=== PATIENT | male | born 1985 | race Caucasian/White ===

== ENCOUNTER 2016-09-24 20:21 | Inpatient (IN) | payer OTHER ==
[~2016-09-24] VITALS: Ht 188 cm; Wt 131.0 kg
[2016-09-24 21:43] LABS: HEMATOCRIT 43.1 % (38.0-50.0); MCH 27.8 PG (29.0-34.0); MCHC 34.1 G/DL (30.0-36.0); MCV 81.6 FL (86-99); MEAN PLAT.VOLUME 9.9 uM^3 (9.0-12.4); PLATELET COUNT 336 K/uL (156-360); RBC DIS.WIDTH-SD 38.1 % (39-53); RED BLOOD COUNT 5.28 M/uL (4.00-5.50); WHITE BLOOD COUNT 15.1 K/uL (4.1-10.2)
[2016-09-24 21:44] LABS: EOSINOPHIL (%) 0.6 % (0-5); EOSINOPHIL COUNT 0.1 K/uL (0-0.3); IMMATURE GRANULOCYTE (%) 0.3 % (0.0-0.7); IMMATURE GRANULOCYTE COUNT 0.4 K/uL; LYMPHOCYTE COUNT 1.9 K/uL (1.0-2.8); MONOCYTE (%) 6.8 % (3-12); NEUTROPHIL (%) 79.3 % (45-76)
[2016-09-24 21:56] LABS: CHLORIDE 105 mEq/L (99-109); POTASSIUM 4.2 mEq/L (3.7-5.4); SODIUM 141 mEq/L (136-147)
[2016-09-24 21:58] LABS: GLUCOSE 136 mg/dL (70-99)
[2016-09-24 21:59] LABS: ANION GAP 14 MEQ/L (2-14)
[2016-09-24 22:01] LABS: D-DIMER ELISA 0.49 mg/L FEU (< 0.57); PROTHROMBIN TIME 10.4 (9.2-11.2); PTT 25.5 (25-32)
[2016-09-24 22:02] LABS: GFR ESTIMATE (CALCULATED) > 59 mL/min/; UREA NITROGEN (BUN) 15 mg/dL (9-23)
[2016-09-24 22:09] LABS: TROP-I INTERPRETATION NEGATIVE; TROPONIN-I < 0.01 ng/mL (0.0-0.30)
[2016-09-25] MEDS ORDERED: BENZONATATE200 MG PO (00:35)
[2016-09-25] MEDS ORDERED: METHYLPHENIDATE20 M6 PO (00:36)
[2016-09-25] MEDS ORDERED: METHYLPHENIDATE20 MG PO (00:36)
[2016-09-25] MEDS ORDERED: ONE-A-DAY ESSE1 EAC1 PO (00:36)
[2016-09-25 06:28] VITALS: BP 123/75
[2016-09-25 10:35] LABS: INFLUENZA A VIRAL ANTIGEN NEGATIVE; INFLUENZA B VIRAL ANTIGEN NEGATIVE
[2016-09-25 11:16] VITALS: BP 126/63
[2016-09-25 14:00] VITALS: BP 141/71
[2016-09-25 19:07] VITALS: BP 136/62
[2016-09-25 23:45] VITALS: BP 142/63
[2016-09-26 03:15] VITALS: BP 128/75
[2016-09-26 07:07] LABS: EOSINOPHIL (%) 0.8 % (0-5); EOSINOPHIL COUNT 0.1 K/uL (0-0.3); HEMATOCRIT 38.6 % (38.0-50.0); IMMATURE GRANULOCYTE (%) 0.5 % (0.0-0.7); IMMATURE GRANULOCYTE COUNT 0.1 K/uL; LYMPHOCYTE COUNT 1.6 K/uL (1.0-2.8); MCH 28.2 PG (29.0-34.0); MCHC 32.9 G/DL (30.0-36.0); MCV 85.6 FL (86-99); MEAN PLAT.VOLUME 10.5 uM^3 (9.0-12.4); MONOCYTE (%) 13.6 % (3-12); MONOCYTE COUNT 1.5 K/uL (0-0.8); NEUTROPHIL (%) 70.6 % (45-76); NEUTROPHIL COUNT 7.8 K/uL (1.8-6.4); PLATELET COUNT 257 K/uL (156-360); RBC DIS.WIDTH-CV 13.3 % (11.8-14.6); RBC DIS.WIDTH-SD 41.4 % (39-53); RED BLOOD COUNT 4.51 M/uL (4.00-5.50); WHITE BLOOD COUNT 11.1 K/uL (4.1-10.2)
[2016-09-26 07:22] LABS: ALKALINE PHOSPHATASE 70 IU/L (3-129); ANION GAP 7 MEQ/L (2-14); CHLORIDE 104 MEQ/L (99-109); GFR ESTIMATE (CALCULATED) > 59 mL/min/; POTASSIUM 4.1 MEQ/L (3.7-5.4); SAMPLE HEMOLYSIS CHECK 0; SAMPLE ICTERIC CHECK 0; SAMPLE LIPEMIA CHECK 0; SODIUM 138 MEQ/L (136-147); TOTAL BILIRUBIN 1.1 MG/DL (0.0-1.0); UREA NITROGEN (BUN) 11 mg/dL (9-23)
[2016-09-26 07:24] LABS: GLUCOSE 98 mg/dL (70-99)
[2016-09-26 07:47] LABS: INTERNAL CONTROL VALID? YES
[2016-09-26 08:12] VITALS: BP 142/98
[2016-09-26 09:29] LABS: ADD MIUA? YES; BILIRUBIN NEGATIVE; BLOOD SMALL; COLOR DK YELLOW ((YELLOW)); GLUCOSE (STRIP) NEGATIVE; KETONES NEGATIVE; LEUKOCYTES NEGATIVE; NITRITE NEGATIVE; PROTEIN (STRIP) TRACE; SPECIFIC GRAVITY 1.023 (1.000-1.030)
[2016-09-26 10:13] LABS: BACTERIA RARE; CASTS NONE SEEN /LPF; CRYSTALS NONE SEEN; EPITHELIAL CELLS RARE; MUCUS 2+; RED BLOOD CELLS 0-5 /HPF (0-5); UCUL ADDED? NO; WHITE BLOOD CELLS 0-5 /HPF (0-5)
[2016-09-26 16:29] VITALS: BP 170/92
[2016-09-26 20:05] VITALS: BP 157/76
[2016-09-26 22:56] VITALS: BP 121/76
[2016-09-27 03:19] VITALS: BP 127/72
[2016-09-27 08:00] VITALS: BP 127/78
[2016-09-27 08:16] LABS: HEMATOCRIT 36.9 % (38.0-50.0); MCHC 32.8 G/DL (30.0-36.0); MCV 85.4 FL (86-99); MEAN PLAT.VOLUME 10.3 uM^3 (9.0-12.4); PLATELET COUNT 251 K/uL (156-360); RBC DIS.WIDTH-CV 13.3 % (11.8-14.6); RBC DIS.WIDTH-SD 41.5 % (39-53); RED BLOOD COUNT 4.32 M/uL (4.00-5.50); WHITE BLOOD COUNT 11.8 K/uL (4.1-10.2)
[2016-09-27 08:32] LABS: EOSINOPHIL (%) 1.4 % (0-5); EOSINOPHIL COUNT 0.2 K/uL (0-0.3); IMMATURE GRANULOCYTE (%) 0.4 % (0.0-0.7); IMMATURE GRANULOCYTE COUNT 0.1 K/uL; LYMPHOCYTE COUNT 1.5 K/uL (1.0-2.8); MONOCYTE (%) 13.8 % (3-12); MONOCYTE COUNT 1.6 K/uL (0-0.8); NEUTROPHIL (%) 71.8 % (45-76); NEUTROPHIL COUNT 8.5 K/uL (1.8-6.4)
[2016-09-27 08:38] LABS: ANION GAP 7 MEQ/L (2-14); CHLORIDE 99 MEQ/L (99-109); GFR ESTIMATE (CALCULATED) > 59 mL/min/; GLUCOSE 101 mg/dL (70-99); SAMPLE HEMOLYSIS CHECK 0; SAMPLE ICTERIC CHECK 0; SAMPLE LIPEMIA CHECK 0; SODIUM 133 MEQ/L (136-147); UREA NITROGEN (BUN) 10 mg/dL (9-23)
[2016-09-27 15:45] VITALS: BP 129/77
[2016-09-27 23:49] VITALS: BP 136/82
[2016-09-28 07:50] VITALS: BP 130/80
[2016-09-28 08:11] LABS: HEMATOCRIT 35.8 % (38.0-50.0); MCH 27.3 PG (29.0-34.0); MCHC 32.4 G/DL (30.0-36.0); MCV 84.2 FL (86-99); PLATELET COUNT 267 K/uL (156-360); RBC DIS.WIDTH-CV 13.5 % (11.8-14.6); RBC DIS.WIDTH-SD 41.1 % (39-53); RED BLOOD COUNT 4.25 M/uL (4.00-5.50); WHITE BLOOD COUNT 11.3 K/uL (4.1-10.2)
[2016-09-28 08:20] LABS: EOSINOPHIL COUNT 0.3 K/uL (0-0.3); IMMATURE GRANULOCYTE (%) 0.5 % (0.0-0.7); IMMATURE GRANULOCYTE COUNT 0.1 K/uL; LYMPHOCYTE COUNT 1.1 K/uL (1.0-2.8); MONOCYTE (%) 15.3 % (3-12); MONOCYTE COUNT 1.7 K/uL (0-0.8); NEUTROPHIL (%) 71.6 % (45-76); NEUTROPHIL COUNT 8.1 K/uL (1.8-6.4)
[2016-09-28 11:24] VITALS: BP 144/82
[2016-09-28 15:00] VITALS: BP 145/70
[2016-09-28 19:41] VITALS: BP 143/85
[2016-09-28 23:29] VITALS: BP 147/79
[2016-09-29 03:33] VITALS: BP 137/85
[2016-09-29 07:24] LABS: EOSINOPHIL (%) 4.1 % (0-5); EOSINOPHIL COUNT 0.4 K/uL (0-0.3); HEMATOCRIT 36.3 % (38.0-50.0); IMMATURE GRANULOCYTE (%) 0.5 % (0.0-0.7); IMMATURE GRANULOCYTE COUNT 0.1 K/uL; MCH 26.9 PG (29.0-34.0); MCV 84.2 FL (86-99); MEAN PLAT.VOLUME 10.1 uM^3 (9.0-12.4); MONOCYTE COUNT 1.1 K/uL (0-0.8); NEUTROPHIL (%) 72.9 % (45-76); NEUTROPHIL COUNT 6.8 K/uL (1.8-6.4); PLATELET COUNT 302 K/uL (156-360); RBC DIS.WIDTH-CV 13.5 % (11.8-14.6); RBC DIS.WIDTH-SD 41.6 % (39-53); RED BLOOD COUNT 4.31 M/uL (4.00-5.50); WHITE BLOOD COUNT 9.4 K/uL (4.1-10.2)
[2016-09-29 07:30] VITALS: BP 141/83
[2016-09-29 07:50] LABS: ANION GAP 11 MEQ/L (2-14); CHLORIDE 100 MEQ/L (99-109); GFR ESTIMATE (CALCULATED) > 59 mL/min/; GLUCOSE 108 mg/dL (70-99); POTASSIUM 4.5 MEQ/L (3.7-5.4); SAMPLE HEMOLYSIS CHECK 0; SAMPLE ICTERIC CHECK 0; SAMPLE LIPEMIA CHECK 0; SODIUM 137 MEQ/L (136-147); UREA NITROGEN (BUN) 10 mg/dL (9-23)
[2016-09-29 10:44] LABS: LACTATE DEHYDROGENASE 191 IU/L (20-246)
[2016-09-29 10:47] LABS: TYPE OF FLUID PLEURAL
[2016-09-29 11:34] LABS: BODY FLUID LDH 1422 IU/L; BODY FLUID PROTEIN 5.4 G/DL
[2016-09-29 11:35] VITALS: BP 144/80
[2016-09-29 11:37] LABS: BODY FLUID RBC'S 2000 /MM^3 (0-100); BODY FLUID WBC'S 2402 /MM^3 (0-500)
[2016-09-29 12:06] LABS: BODY FLUID EOSINOPHILS 0 % (0-25); MONO RAW COUNT 22; MONONUCLEAR WBC'S 22 %; POLY RAW COUNT 78; POLYNUCLEAR WBC'S 78 % (0-25)
[2016-09-29 12:07] LABS: COMMENT MODERATE MACROPHAGES
[2016-09-29 15:53] VITALS: BP 146/90
[2016-09-29 20:34] VITALS: BP 142/77
[2016-09-29 23:48] VITALS: BP 146/85
[2016-09-30 03:35] VITALS: BP 137/75
[2016-09-30 07:14] VITALS: BP 148/84
[2016-09-30] MEDS ORDERED: LEVAQUIN750 MG PO (08:59)
[2016-09-30] MEDS ORDERED: PERCOCET 5/31 TABLET PO (08:59)
== END 2016-09-30 12:29 | disposition home or self-care (01) | DRG 193 ==
LOC: EME 20:21 → 2EASTP 09-25 02:12 → EDOF 09-25 02:12 → 2EAST 09-25 02:12 → 2EASTP 09-25 06:20 → 2EAST 09-27 15:20
PROVIDERS: Emergency Medicine; Hospitalist; Internal Medicine; Radiology Diagnostic Radiology
PROC: 0W993ZX Drainage of Right Pleural Cavity, Percutaneous Approach, Diagnostic (ICD-10-PCS; principal; 2016-09-29)
DX: J18.9 Pneumonia, unspecified organism (principal); J96.01 Acute respiratory failure with hypoxia; J90 Pleural effusion, not elsewhere classified; J98.11 Atelectasis; E66.9 Obesity, unspecified; Z68.37 Body mass index [BMI] 37.0-37.9, adult
CPT/HCPCS: 71010; 71020; 71250; 71275; 80048; 80053; 81003; 82945; 83615; 83615 91; 83880; 84155; 84157; 84484; 85025; 85027; 85379; 85610; 85730; 87040; 87070; 87116; 87205; 87206; 87449; 87502; 88108; 88305; 89051; 93005; 94010; 94640; 94640 76; 94799; 99202; 99281; 99285; J1170; J1644; J1885; J1956; J2270; J2405

== ENCOUNTER → 2016-10-06 | Outpatient (CLI) | payer OTHER ==
[~2016-10-06] MED LIST: BENZONATATE200 MG PO; LEVAQUIN750 MG PO; METHYLPHENIDATE20 M6 PO; METHYLPHENIDATE20 MG PO; ONE-A-DAY ESSE1 EAC1 PO; PERCOCET 5/31 TABLET PO
[2016-10-06 14:06] LABS: TYPE OF FLUID PLEURAL
[2016-10-06 14:24] LABS: BODY FLUID RBC'S 1000 /MM^3 (0-100); BODY FLUID WBC'S 233 /MM^3 (0-500)
[2016-10-06 14:45] LABS: BODY FLUID PROTEIN 5.8 G/DL
[2016-10-06 14:53] LABS: BODY FLUID LDH 1912 IU/L
[2016-10-06 14:54] LABS: BODY FLUID EOSINOPHILS 0 % (0-25); MONO RAW COUNT 3; MONONUCLEAR WBC'S 3 %; POLY RAW COUNT 97; POLYNUCLEAR WBC'S 97 % (0-25)
== END | disposition home or self-care (01) ==
LOC: OPR 11:42 → EDSTATUS 12:00
PROVIDERS: Internal Medicine Pulmonary Disease
PROC: 0W993ZZ Drainage of Right Pleural Cavity, Percutaneous Approach (ICD-10-PCS; principal; 2016-10-06)
DX: J90 Pleural effusion, not elsewhere classified (principal)
CPT/HCPCS: 82945; 83615 91; 84157; 87070; 87075; 87205; 89051; C1769; J3010

== ENCOUNTER 2016-10-21 08:33 | Inpatient (IN) | payer OTHER ==
[~2016-10-21] VITALS: Ht 188 cm; Wt 129.0 kg
[2016-10-21 08:52] VITALS: BP 125/90
[2016-10-21 09:13] LABS: INTER. NORMALIZED RATIO 1.1; PROTHROMBIN TIME 10.7 (9.2-11.2)
[2016-10-21 14:45] VITALS: BP 119/76
[2016-10-22 00:22] VITALS: BP 117/64
[2016-10-22 07:12] LABS: HEMATOCRIT 38.2 % (38.0-50.0); MCH 27.3 PG (29.0-34.0); MCHC 32.5 G/DL (30.0-36.0); PLATELET COUNT 225 K/uL (156-360); RBC DIS.WIDTH-CV 13.8 % (11.8-14.6); RBC DIS.WIDTH-SD 41.5 % (39-53); RED BLOOD COUNT 4.55 M/uL (4.00-5.50); WHITE BLOOD COUNT 8.6 K/uL (4.1-10.2)
[2016-10-22 07:39] LABS: ANION GAP 6 MEQ/L (2-14); CHLORIDE 104 MEQ/L (99-109); GFR ESTIMATE (CALCULATED) > 59 mL/min/; GLUCOSE 114 mg/dL (70-99); POTASSIUM 4.1 MEQ/L (3.7-5.4); SAMPLE HEMOLYSIS CHECK 0; SAMPLE ICTERIC CHECK 0; SAMPLE LIPEMIA CHECK 0; SODIUM 137 MEQ/L (136-147); UREA NITROGEN (BUN) 10 mg/dL (9-23)
[2016-10-22 08:03] VITALS: BP 125/69
[2016-10-22 12:16] VITALS: BP 121/75
[2016-10-22 16:39] VITALS: BP 122/69
[2016-10-22 20:14] VITALS: BP 133/74
[2016-10-22 23:34] VITALS: BP 112/55
[2016-10-23 04:18] VITALS: BP 115/68
[2016-10-23 07:49] VITALS: BP 131/82
[2016-10-23 11:45] VITALS: BP 138/90
[2016-10-23 15:31] VITALS: BP 131/83
[2016-10-23 20:29] VITALS: BP 141/90
[2016-10-24 00:41] VITALS: BP 128/68
[2016-10-24 03:44] VITALS: BP 132/68
[2016-10-24 08:36] VITALS: BP 122/82
[2016-10-24 13:43] VITALS: BP 133/89
[2016-10-24 17:24] VITALS: BP 139/96
[2016-10-25] VITALS: BP 129/78
[2016-10-25 08:16] VITALS: BP 142/95
[2016-10-25 11:34] VITALS: BP 138/36
[2016-10-25 16:12] VITALS: BP 131/88
[2016-10-25] MEDS ORDERED: HYDROCODON-ACE1 EAC7 PO (16:55)
[2016-10-25] MEDS ORDERED: MOTRIN600 MG PO (16:55)
[2016-10-25] MEDS ORDERED: DOCUSATE SODIU100 MG PO (16:55)
== END 2016-10-25 18:54 | disposition home or self-care (01) | DRG 164 ==
LOC: SDC 08:33 → 2SOUTH 12:17 → 3EAST 12:17 → SDC 13:57 → 3EAST 14:25
PROVIDERS: Thoracic Surgery (Cardiothoracic Vascular Surgery)
DX: J18.9 Pneumonia, unspecified organism (principal); J90 Pleural effusion, not elsewhere classified; J94.8 Other specified pleural conditions
CPT/HCPCS: 71010; 71020; 80048; 85027; 85610; 86850; 86900; 86901; 88305; 94010; 94640; 94640 76; 94799; 99202; J0330; J1100; J1170; J1644; J1885; J2175; J2250; J2405; J2710; J3010; J7120